=== PATIENT | female | born 1955 | race Caucasian/White ===

== ENCOUNTER 2021-08-26 18:35 | Emergency (ER) | payer MEDICARE, SELFPAY ==
[2021-08-26 18:42] VITALS: BP 151/85; PULSE 78; RESP 16; TEMP 36.3; O2SAT 95
--- NOTE | 2021-08-26 20:30 | ED_ITS ---
Documented by User: Francisco Espinal DO 08/26/21 23:02 HPI - Abdominal Pain General: Chief Complaint: Abdominal Pain Stated Complaint: lower abdominal pain Time Seen by Provider: 08/26/21 20:21 Source: patient and family Mode of arrival: ambulatory Limitations: no limitations History of Present Illness: This patient presents to our emergency department by private vehicle from her home. She states that she noted lower abdominal pain predominantly on the left side somewhere around 12:00 today which has persisted since that time. She states it is a nagging pain and its sometimes feels like pressure and gas but generally is nagging and uncomfortable. She states that she has not had any dysuria or frequency and did have a normal bowel movement without any blood or melena. She has had a prior C-sections as well as an appendectomy. She has had prior kidney stones but states this pain does not really feel like kidney stone pain. She denies any recent illness or exposure to infectious disease. She is a tobacco user. MD elicited complaint: abdominal pain Pertinent past history: kidney stones Location: LLQ and Suprapubic Quality: aching and fullness Radiation: none Exacerbating factors: nothing Relieving factors: nothing Associated Symptoms: Denies chills, diarrhea, dysuria, fever(s), hematochezia, melena, nausea, syncope and vomiting Review of Systems Const: Denies: fever(s), chills, body aches or change in appetite Eyes: Denies: change in vision ENMT: Denies: throat pain, odynophagia or nasal congestion Card: Denies: chest pain, palpitations, irregular heart rhythm, edema or syncope Resp: Denies: dyspnea, productive cough or non-productive cough GI: Reports: abdominal pain; Denies: nausea, vomiting, diarrhea, hematochezia or melena : Denies: flank pain, difficulty voiding, dysuria, urinary frequency, vaginal bleeding or vaginal discharge Musc: Denies: back pain, extremity pain or extremity swelling Skin/Breast: Denies: rash or pruritus Neuro: Denies: headache(s), numbness in extremities or weakness in extremities Psych: Denies: anxiety or depression Endo: Denies: polyuria or polydipsia Physical Exam Narrative: EXAM NARRATIVE: Appears slightly uncomfortable but is cooperative and answers questions in a goal-directed fashion. Const: COMMON NORMALS: no acute distress, patient oriented x3, no limitations, healthy appearing and alert HENMT: COMMON NORMALS: normocephalic, atraumatic, Normal nasal mucous membranes and turbinates present and moist oral mucous membranes HEAD & SCALP: normocephalic and atraumatic FACE & SINUS: normal facial exam NOSE: Normal nasal mucous membranes and turbinates present Eye: COMMON NORMALS: Equal, round and reactive pupils present, EOMs intact bilaterally and no scleral icterus PUPIL: Yes Equal, round and reactive pupils present Neck/C-Spine: COMMON NORMALS: full ROM, no lymphadenopathy and no JVD Chest: COMMONS NORMALS: normal inspection of the chest Resp: COMMON NORMALS: normal respiratory effort, No retractions, No use of accessory muscles and clear to auscultation bilaterally AUSCULTATION: clear to auscultation bilaterally Cardio: COMMON NORMALS: no JVD, regular rate, regular rhythm, No murmurs present (Cardio) and Peripheral pulses 2+ throughout RATE: regular rate RHYTHM: regular rhythm PERIPHERAL PULSES: Peripheral pulses 2+ throughout GI: INSPECTION: Yes scar (Right lower quadrant healed surgical scar. Transverse lower abdominal heal) PALPATION: Yes Tenderness to palpation present (GI) (Predominant tenderness is in the left lower quadrant. There is no guarding) Details: LLQ : COMMON NORMALS: Yes no CVA tenderness BLADDER/KIDNEY EXAM: Yes no CVA tenderness Back/Pelvis: COMMON NORMALS: no CVA tenderness, thoracic and lumbar spine normal to inspection, no thoracic nor lumbar tenderness and thoraco-lumbar ROM normal Extremity: COMMON NORMALS: normal to inspection, capillary refill normal, no calf tenderness and no pedal edema Neuro: COMMON NORMALS: patient oriented x3, moves all extremities, no focal mo tor deficits and no sensory deficits noted SENSORIUM/ORIENTATION: Yes alert Psych: COMMON NORMALS: mental status grossly normal Skin: COMMON NORMALS: no rashes or lesions noted and turgor normal GENERAL SKIN EXAM: no rashes or lesions noted and turgor normal Course Reevaluation(s): Reevaluation #1: Patient has significant hematuria without any significant pyuria or bacteriuria suggestive of possible renal colic and stone. I discussed that imaging would be helpful regarding termination of stone size location and to ensure that no other occult pathology. She agreed to proceed with a CT scan. Time: 22:25 Reevaluation #2: Case to be turned over to Dr. Rodriguez for final disposition. Time: 23:02 Vital Signs: Vital signs: Vital Signs Temperature 98.2 F 08/27/21 02:00 Pulse Rate 57 L 08/27/21 02:00 Respiratory Rate 19 H 08/27/21 02:00 Blood Pressure 148/93 08/27/21 02:00 Pulse Oximetry 97 08/27/21 02:00 MDM - Abdominal Pain Medical Decision Making This patient presented with left lower abdominal pain which was waxing and waning over the several hours prior to admission to the emergency department. No other constitutional symptoms. Has a history of kidney stones this current pain did not feel exactly the same however. Work-up was instituted to evaluate for infection and/or possible other pathology in her abdomen. Lab Data I reviewed the patient's lab results. : 08/26/21 21:30 08/26/21 21: Labs/Radiology: Radiology Impressions Abdomen/Pelvis CT 08/26/21 21:39 IMPRESSION: 3 mm obstructive stone in the distal left ureter producing mild hydronephrosis. Laboratory Results WBC 10.5 10^3/uL (4.0-10.0) H 08/26/21 21:30 RBC 4.54 10^6/uL (4.1-5.3) 08/26/21 21:30 Hgb 14.8 g/dL (11.5-15.3) 08/26/21 21:30 Hct 43.7 % (37.0-47.0) 08/26/21 21: MCV 96.3 fl (81-99) 08/26/21 21: MCH 32.6 pg (28.0-34.0) 08/26/21 21: MCHC 33.9 g/dL (30.0-36.0) 08/26/21 21: RDW 12.9 % (12.1-15.1) 08/26/21: Plt Count 262 10^3/cmm (130-400) 08/26/21 21: MPV 10.4 fL (7.4-10.4) 08/26/21 21: Neut % (Auto) 80.4 % 08/26/21: Lymph % (Auto) 12.9 % 08/26/21:30 [place] % (Auto) 5.7 % 08/26/21 21:30 Eos % (Auto) 0.3 % 08/26/21 21:30 Baso % (Auto) 0.4 % 08/26/21 21:30 Neut # (Auto) 8.47 10^3/uL (1.8-7.7) H 08/26/21 21:30 Lymph # (Auto) 1.4 10^3/uL (0.8-4.8) 08/26/21 21:30 [place] # (Auto) 0.6 10^3/uL (0.2-0.9) 08/26/21 21:30 Eos # (Auto) 0.0 10^3/uL (0.0-0.8) 08/26/21 21: Baso # (Auto) 0.0 10^3/uL (0.0-0.1) 08/26/21 21:30 Nucleated RBC % (auto) 0 % 08/26/21 21: Nucleated RBCs # 0.0 /100WBC 08/26/21 21:30 Sodium 140 mmol/L (136-145) 08/26/21 21:30 Potassium 4.7 mmol/L (3.5-5.1) 08/26/21: Chloride 102 mmol/L (98-107) 08/26/21: Carbon Dioxide 26 mmol/L (22-29) 08/26/21 21:30 Anion Gap 16.7 (5-19) 08/26/21 21:30 BUN 11 mg/dL (8-23) 08/26/21 21: Creatinine 0.8 mg/dL (0.5-0.9) 08/26/21 21:30 GFR Calculation 72.0 mL/min (90-130) L 08/26/21 21: Glucose 109 mg/dL (65-115) 08/26/21 21: Calculated Osmolality 290 mOsm/kg (285-295) 08/26/21: Calcium 9.7 mg/dL (8.5-10.5) 08/26/21 21:30 Total Bilirubin 0.6 mg/dL (0.15-1.2) 08/26/21: AST 24 U/L (0-32) 08/26/21 21:30 ALT 14 U/L (0-33) 08/26/21 21:30 Alkaline Phosphatase 77 IU/L (35-105) 08/26/21 21:30 Total Protein 7.6 g/dL (6.6-8.7) 08/26/21 21:30 Albumin 4.3 g/dL (3.5-5.2) 08/26/21 21:30 Globulin 3.3 g/dL (1.3-4.6) 08/26/21 21:30 Lipase 21 U/L (13-60) 08/26/21 21:30 Urine Color Yellow (Yellow) 08/26/21 21:18 Urine Appearance Sl hazy (CLEAR) 08/26/21 21:18 Urine pH 5 (5-7) 08/26/21 21:18 Ur Specific [place] 1.020 (1.005-1.030) 08/26/21 21:18 Urine Protein Neg (Negative) 08/26/21 21:18 Urine Glucose (UA) Norm (Normal) 08/26/21 21:18 Urine Ketones Negative (Negative) 08/26/21 21:18 Urine Blood 3+ (Negative) H 08/26/21 21:18 Urine Nitrate Negative (Negative) 08/26/21 21:18 Urine Bilirubin Neg (Negative) 08/26/21 21:18 Urine Urobilinogen Norm mg/dL (Negative) 08/26/21 21:18 Ur Leukocyte Esterase Negative (Negative) 08/26/21 21:18 Urine RBC >100 /hpf (0-2) H 08/26/21 21:18 Urine WBC 0-4 /hpf (0-5) H 08/26/21 21:18 Ur Squamous Epith Cells 0-4 /hpf (0-5) H 08/26/21 21:18 Amorphous Sediment Not Reportable 08/26/21 21:18 Urine Bacteria Trace /hpf (NONE) 08/26/21 21:18 Urine Mucus 2+ /hpf 08/26/21 21:18 Discharge Plan Discharge Patient Disposition: Home Clinical Impression: Kidney stone Condition: Stable Prescriptions: New Flomax 0.4 mg capsule 0.4 mg PO DAILY Qty: 7 0RF ketorolac 10 mg tablet 10 mg PO Q8H PRN (Reason: pain) Qty: 15 0RF ondansetron 4 mg tablet,disintegrating 4 mg PO TID PRN (Reason: nausea and vomiting) Qty: 15 0RF oxycodone 5 mg tablet 5 mg PO Q4H PRN (Reason: pain) Qty: 6 0RF Discharge Orders: Discharge ED (Routine); Ordered 08/27/21 Ordered By: Bruce Rodriguez Discharge Diet: Usual diet Discharge Activity: Increase activity as tolerated Patient Instructions: Kidney Stones (ED), How to Strain Your Urine (ED), Opioid Safety Activity Restrictions/Additional Instructions: Thank you for visiting the emergency department. You were seen and evaluated for pain in your abdomen. You were found of a kidney stone which likely explain symptoms. You will be given prescriptions for medications. You will be given a prescription for ketorolac which you can take in place of ibuprofen. Additionally you may use Tylenol however please do not exceed the daily recommended dosage. For pain that is in addition despite other treatments you may use oxycodone. This can cause sedation. Do not drive or operate vehicles. This also causes constipation. Please use it cautiously. Please follow-up with your primary care provider. If you do not pass the kidney stone in the next 3 days please call to schedule an appoint with urology. Please return to the emergency department for any infectious symptoms, uncontrolled pain despite treatment, inability tolerate p.o. intake, or anything else that you are concerned about and feel needs emergency department evaluation. Coding Level of Care Code ED Vice President Biostatistics for Chg Fwd Exam Comprehensive Documented by User: Bruce Rodriguez MD 09/03/21 01:27 HPI - Abdominal Pain General: Chief Complaint: Abdominal Pain Stated Complaint: lower abdominal pain Time Seen by Provider: 08/26/21 20:21 Course Vital Signs: Vital signs: Vital Signs Temperature 98.2 F 08/27/21 02:00 Pulse Rate 57 L 08/27/21 02:00 Respiratory Rate 19 H 08/27/21 02:00 Blood Pressure 148/93 08/27/21 02:00 Pulse Oximetry 97 08/27/21 02:00 MDM - Abdominal Pain Medical Decision Making This patient presented with left lower abdominal pain which was waxing and waning over the several hours prior to admission to the emergency department. No other constitutional symptoms. Has a history of kidney stones this current pain did not feel exactly the same however. Work-up was instituted to evaluate for infection and/or possible other pathology in her abdomen. Patient care handoff received from Dr. Espinal pending completion of ED evaluation. Minimal leukocytosis, normal hemoglobin. Metabolic panel without significant abnormality. No evidence of urinary tract infection. 3 mm o bstructive stone in the distal left ureter producing mild hydronephrosis which explains the hematuria and likely explains patient's symptoms. No evidence of infected stone. Symptoms are managed with ED treatment. Results of ED evaluation were discussed with the patient including prescriptions, return precautions, and follow-up plan. Patient verbalized understanding and felt safe for discharge. Discharged in satisfactory condition. Bruce Rodriguez MD Emergency Medicine Lab Data : 08/26/21 21:30 08/26/21 21:30 Labs/Radiology: Radiology Impressions Abdomen/Pelvis CT 08/26/21 21:39 IMPRESSION: 3 mm obstructive stone in the distal left ureter producing mild hydronephrosis. Laboratory Results WBC 10.5 10^3/uL (4.0-10.0) H 08/26/21 21:30 RBC 4.54 10^6/uL (4.1-5.3) 08/26/21 21:30 Hgb 14.8 g/dL (11.5-15.3) 08/26/21 21:30 Hct 43.7 % (37.0-47.0) 08/26/21 21: MCV 96.3 fl (81-99) 08/26/21 21:30 MCH 32.6 pg (28.0-34.0) 08/26/21 21:30 MCHC 33.9 g/dL (30.0-36.0) 08/26/21 21:30 RDW 12.9 % (12.1-15.1) 08/26/21 21:30 Plt Count 262 10^3/cmm (130-400) 08/26/21 21: MPV 10.4 fL (7.4-10.4) 08/26/21 21: Neut % (Auto) 80.4 % 08/26/21 21:30 Lymph % (Auto) 12.9 % 08/26/21 21:30 [place] % (Auto) 5.7 % 08/26/21 21: Eos % (Auto) 0.3 % 08/26/21 21:30 Baso % (Auto) 0.4 % 08/26/21 21:30 Neut # (Auto) 8.47 10^3/uL (1.8-7.7) H 08/26/21 21: Lymph # (Auto) 1.4 10^3/uL (0.8-4.8) 08/26/21 21:30 [place] # (Auto) 0.6 10^3/uL (0.2-0.9) 08/26/21 21: Eos # (Auto) 0.0 10^3/uL (0.0-0.8) 08/26/21: Baso # (Auto) 0.0 10^3/uL (0.0-0.1) 08/26/21: Nucleated RBC % (auto) 0 % 08/26/21 21: Nucleated RBCs # 0.0 /100WBC 08/26/21 21:30 Sodium 140 mmol/L (136-145) 08/26/21: Potassium 4.7 mmol/L (3.5-5.1) 08/26/21: Chloride 102 mmol/L (98-107) 08/26/21: Carbon Dioxide 26 mmol/L (22-29) 08/26/21: Anion Gap 16.7 (5-19) 08/26/21 21: BUN 11 mg/dL (8-23) 08/26/21 21: Creatinine 0.8 mg/dL (0.5-0.9) 08/26/21 21: GFR Calculation 72.0 mL/min (90-130) L 08/26/21: Glucose 109 mg/dL (65-115) 08/26/21 21: Calculated Osmolality 290 mOsm/kg (285-295) 08/26/21: Calcium 9.7 mg/dL (8.5-10.5) 08/26/21 21: Total Bilirubin 0.6 mg/dL (0.15-1.2) 08/26/21 21:30 AST 24 U/L (0-32) 08/26/21 21:30 ALT 14 U/L (0-33) 08/26/21 21:30 Alkaline Phosphatase 77 IU/L (35-105) 08/26/21 21:30 Total Protein 7.6 g/dL (6.6-8.7) 08/26/21 21:30 Albumin 4.3 g/dL (3.5-5.2) 08/26/21 21:30 Globulin 3.3 g/dL (1.3-4.6) 08/26/21 21:30 Lipase 21 U/L (13-60) 08/26/21 21:30 Urine Color Yellow (Yellow) 08/26/21 21:18 Urine Appearance Sl hazy (CLEAR) 08/26/21 21:18 Urine pH 5 (5-7) 08/26/21 21:18 Ur Specific [place] 1.020 (1.005-1.030) 08/26/21 21:18 Urine Protein Neg (Negative) 08/26/21 21:18 Urine Glucose (UA) Norm (Normal) 08/26/21 21:18 Urine Ketones Negative (Negative) 08/26/21 21:18 Urine Blood 3+ (Negative) H 08/26/21 21:18 Urine Nitrate Negative (Negative) 08/26/21 21:18 Urine Bilirubin Neg (Negative) 08/26/21 21:18 Urine Urobilinogen Norm mg/dL (Negative) 08/26/21 21:18 Ur Leukocyte Esterase Negative (Negative) 08/26/21 21:18 Urine RBC >100 /hpf (0-2) H 08/26/21 21:18 Urine WBC 0-4 /hpf (0-5) H 08/26/21 21:18 Ur Squamous Epith Cells 0-4 /hpf (0-5) H 08/26/21 21:18 Amorphous Sediment Not Reportable 08/26/21 21:18 Urine Bacteria Trace /hpf (NONE) 08/26/21 21:18 Urine Mucus 2+ /hpf 08/26/21 21:18 Discharge Plan Discharge Patient Disposition: Home Clinical Impression: Kidney stone Condition: Stable Prescriptions: New Flomax 0.4 mg capsule 0.4 mg PO DAILY Qty: 7 0RF ketorolac 10 mg tablet 10 mg PO Q8H PRN (Reason: pain) Qty: 15 0RF ondansetron 4 mg tablet,disintegrating 4 mg PO TID PRN (Reason: nausea and vomiting) Qty: 15 0RF oxycodone 5 mg tablet 5 mg PO Q4H PRN (Reason: pain) Qty: 6 0RF Discharge Orders: Discharge ED (Routine); Ordered 08/27/21 Ordered By: Bruce Rodriguez Discharge Diet: Usual diet Discharge Activity: Increase activity as tolerated Patient Instructions: Kidney Stones (ED), How to Strain Your Urine (ED), Opioid Safety Activity Restrictions/Additional Instructions: Thank you for visiting the emergency department. You were seen and evaluated for pain in your abdomen. You were found of a kidney stone which likely explain symptoms. You will be given prescriptions for medications. You will be given a prescription for ketorolac which you can take in place of ibuprofen. Additionally you may use Tylenol however please do not exceed the daily recommended dosage. For pain that is in addition despite other treatments you may use oxycodone. This can cause sedation. Do not drive or operate vehicles. This also causes constipation. Please use it cautiously. Please follow-up with your primary care provider. If you do not pass the kidney stone in the next 3 days please call to schedule an appoint with urology. Please return to the emergency department for any infectious symptoms, uncontrolled pain despite treatment, inability tolerate p.o. intake, or anything else that you are concerned about and feel needs emergency department evaluation. Coding Level of Care Code ED Vice President Biostatistics for Inna Saenz Exam Comprehensive
[2021-08-26 21:16] VITALS: BP 144/85; PULSE 67; RESP 20; TEMP 36.8; O2SAT 97
--- NOTE | 2021-08-26 21:39 | CTR_ITS ---
PROCEDURE INFORMATION: Exam: CT Abdomen And Pelvis Without Contrast Exam date and time: 08/26/2021 11:49 PM Age: 66 years old Clinical indication: Abdominal pain; Localized; Left lower quadrant (llq); Prior surgery; Surgery date: 6+ months; Surgery type: Appy and 2 c sections; Additional info: Left lower quad pain TECHNIQUE: Imaging protocol: Computed tomography of the abdomen and pelvis without contrast. Radiation optimization: All CT scans at this facility use at least one of these dose optimization techniques: automated exposure control; mA and/or kV adjustment per patient size (includes targeted exams where dose is matched to clinical indication); or iterative reconstruction. COMPARISON: No relevant prior studies available. RADIATION DOSE METRICS: Total DLP (mGy-cm): 1752.81 FINDINGS: Lungs: There is subsegmental atelectasis in the lung bases. Liver: The liver is normal. Gallbladder and bile ducts: The gallbladder is normal. There is no biliary dilation. Pancreas: The pancreas is unremarkable. Spleen: The spleen is unremarkable. Adrenal glands: The adrenal glands are unremarkable. Kidneys and ureters: Mild left hydronephrosis and diffuse hydroureter. 3 x 2 x 2 mm stone in the distal left ureter at the ureterovesical junction. No intrarenal stones. Mild left perinephric edema. The right kidney and ureter are unremarkable. Stomach and bowel: The stomach is decompressed, preventing meaningful evaluation of wall thickness. The small bowel is nondilated. The colon is unremarkable. Appendix: The appendix is not visible. Intraperitoneal space: There is no free air or significant intraperitoneal free fluid. Vasculature: The aorta is unremarkable. There is no aneurysm. The portal, splenic and superior mesenteric veins are patent. Lymph nodes: There is no lymphadenopathy in the retroperitoneum, mesentery, pelvis or inguinal regions. Urinary bladder: The urinary bladder is decompressed, preventing meaningful evaluation of wall thickness. Reproductive: The uterus is unremarkable. There is no adnexal mass or large cyst. Bones/joints: There is mild degenerative disease in the lumbar spine. The pelvis and hips are unremarkable. Soft tissues: The abdominal wall is intact. CT/CT kidney stone [id number] IMPRESSION: 3 mm obstructive stone in the distal left ureter producing mild hydronephrosis.
[2021-08-26 21:43] LABS: Basophils % 0.4 %; Eosinophils % 0.3 %; Hematocrit 43.7 % (37.0-47.0); Hemoglobin 14.8 g/dL (11.5-15.3); Lymphocytes # 1.4 10^3/uL (0.8-4.8); Lymphocytes % 12.9 %; Mean Corpuscular HGB Conc 33.9 g/dL (30.0-36.0); Mean Corpuscular Hemoglobin 32.6 pg (28.0-34.0); Mean Corpuscular Volume 96.3 fl (81-99); Mean Platelet Volume 10.4 fL (7.4-10.4); Monocytes # 0.6 10^3/uL (0.2-0.9); Monocytes % 5.7 %; Neutrophils # 8.47 10^3/uL (1.8-7.7); Neutrophils % 80.4 %; Nucleated Red Blood Cells % 0 %; Platelet Count 262 10^3/cmm (130-400); Red Blood Count 4.54 10^6/uL (4.1-5.3); Red Cell Distribution Width 12.9 % (12.1-15.1); White Blood Count 10.5 10^3/uL (4.0-10.0)
[2021-08-26 21:58] LABS: Albumin Level 4.3 g/dL (3.5-5.2); Alkaline Phosphatase 77 IU/L (35-105); Blood Urea Nitrogen 11 mg/dL (8-23); Calcium 9.7 mg/dL (8.5-10.5); Carbon Dioxide 26 mmol/L (22-29); Chloride 102 mmol/L (98-107); Globulin 3.3 g/dL (1.3-4.6); Glucose 109 mg/dL (65-115); Lipase 21 U/L (13-60); Osmolality Calculated 290 mOsm/kg (285-295); Sodium 140 mmol/L (136-145); Total Bilirubin 0.6 mg/dL (0.15-1.2); Total Protein 7.6 g/dL (6.6-8.7)
[2021-08-26 22:02] LABS: Add Urine Microscopic? YES; Bilirubin Urine Neg (Negative); Blood Urine 3+ (Negative); Glucose Urine UA Norm (Normal); Ketones Urine Negative (Negative); Leukocyte Esterase Urine Negative (Negative); Nitrate Urine Negative (Negative); Protein Urine Neg (Negative); RBC Urine >100 /hpf (0-2); Squamous Epithelial Cell Urine 0-4 /hpf (0-5); Urine Appearance SL Hazy (CLEAR); Urine Color Yellow (Yellow); Urobilinogen Urine Norm (Negative); WBC Urine 0-4 /hpf (0-5); pH Urine 5 (5-7)
[2021-08-26 22:02] LABS: Alanine Aminotransferase 14 U/L (0-33); Anion Gap 16.7 (5-19); Aspartate Amino Transferase 24 U/L (0-32); Potassium 4.7 mmol/L (3.5-5.1)
[2021-08-26 22:03] LABS: Add Urine Culture? Yes; Bacteria Urine TRACE /hpf; Mucus Urine 2+ /hpf
[2021-08-26] MEDS: ketorolac 30 mg/mL INJ 15 MG IVP (22:43)
[2021-08-26 23:25] VITALS: BP 147/94; PULSE 82; RESP 18; O2SAT 95
[2021-08-27 00:18] VITALS: BP 152/95; PULSE 78; RESP 19; O2SAT 95
[2021-08-27 01:59] VITALS: BP 148/93; PULSE 57; RESP 19; TEMP 36.8; O2SAT 97
[2021-08-27 02:00] VITALS: BP 148/93; PULSE 57; RESP 19; TEMP 36.8; O2SAT 97
== END 2021-08-27 02:01 | disposition home or self-care (01) ==
PROVIDERS: Emergency Medicine; Emergency Provider Emergency Medicine
DX: R10.32 Left lower quadrant pain (principal)
CPT/HCPCS: 74176; 80053; 81001; 83690; 85025; 87086; 99284; 99291; 99292; J1885